=== PATIENT | male | born 1945 | race Caucasian/White ===

== ENCOUNTER 2016-04-07 12:03 | Emergency (ER) | payer MEDICARE ==
[~2016-04-07] VITALS: Ht 177.8 cm; Wt 85.0 kg
[2016-04-07 12:03] VITALS: BP 160/87; PULSE 82; RESP 18; TEMP 98.2; O2SAT 94
--- NOTE | 2016-04-07 12:52 | PD ---
HPI Chief Complaint: Complaint Time Seen by Provider: 12:52 Travel History International Travel<30 days: No Contact w/Intl Traveler<30days: No Traveled to known affect area: No History of Present Illness HPI 70-year-old male recently underwent prostate surgery [place] the [place] presents to the emergency department today for inability to urinate. Patient was advised to remove his Pearson catheter 7 days following the surgery. He states he did at 4 AM this morning had has not been able to void since. Reports significant lower abdominal discomfort. Denies any fever or chills. No chest pain or tightness. Denies any other significant medical history. Has no other symptoms to report. PFSH Past Medical History Medical History: Denies Significant Hx Social History Alcohol Use: No Tobacco Use: No Substance Use: No Allergies-Medications (Allergen,Severity, Reaction): Coded Allergies: No Known Allergies (Unverified , 04/07/16) Review of Systems Except as stated in HPI: all other systems reviewed are Neg Physical Exam Narrative GENERAL: Well-nourished male patient, pacing in the room, in obvious discomfort. SKIN: Warm and dry. HEAD: Atraumatic. Normocephalic. EYES: Pupils equal and round. No scleral icterus. No injection or drainage. ENT: No nasal bleeding or discharge. Mucous membranes pink and moist. NECK: Trachea midline. No JVD. CARDIOVASCULAR: Regular rate and rhythm. No murmur appreciated. RESPIRATORY: No accessory muscle use. Clear to auscultation. Breath sounds equal bilaterally. GASTROINTESTINAL: Abdomen soft, moderately distended and suprapubic tenderness.. Hepatic and splenic margins not palpable. MUSCULOSKELETAL: No obvious deformities. No clubbing. No cyanosis. No edema. NEUROLOGICAL: Awake and alert. No obvious cranial nerve deficits. Motor grossly within normal limits. Normal speech. PSYCHIATRIC: Appropriate mood and affect; insight and judgment normal. Data Data Last Documented VS Vital Signs Date Time Temp Pulse Resp B/P Pulse Ox O2 Delivery O2 Flow Rate FiO2 04/07/16 13:15 82 19 04/07/16 12:03 98.2 160/87 94 Room Air Orders Complete Blood Count With Diff (04/07/16 12:50) Basic Metabolic Panel (Bmp) (04/07/16 12:50) Urinalysis - C+S If Indicated (04/07/16 12:50) Continue Pearson/Suprapubic Cath (04/07/16 12:50) Bag, Leg 32oz Sterile Large Ea (04/07/16 14:00) Labs Laboratory Tests Test 04/07/16 04/07/16 13:15 13:27 White Blood Count 8.5 TH/MM3 Red Blood Count 4.86 MIL/MM3 Hemoglobin 14.2 GM/DL Hematocrit 41.2 % Mean Corpuscular Volume 84.8 FL Mean Corpuscular Hemoglobin 29.2 PG Mean Corpuscular Hemoglobin 34.4 % Concent Red Cell Distribution Width 14.5 % Platelet Count 200 TH/MM3 Mean Platelet Volume 8.6 FL Neutrophils (%) (Auto) 78.9 % Lymphocytes (%) (Auto) 11.6 % Monocytes (%) (Auto) 8.6 % Eosinophils (%) (Auto) 0.4 % Basophils (%) (Auto) 0.5 % Neutrophils # (Auto) 6.7 TH/MM3 Lymphocytes # (Auto) 1.0 TH/MM3 Monocytes # (Auto) 0.7 TH/MM3 Eosinophils # (Auto) 0.0 TH/MM3 Basophils # (Auto) 0.0 TH/MM3 CBC Comment DIFF FINAL Differential Comment Sodium Level 137 MEQ/L Potassium Level 4.1 MEQ/L Chloride Level 102 MEQ/L Carbon Dioxide Level 26.8 MEQ/L Anion Gap 8 MEQ/L Blood Urea Nitrogen 14 MG/DL Creatinine 0.94 MG/DL Estimat Glomerular Filtration 80 ML/MIN Rate Random Glucose 103 MG/DL Calcium Level 9.1 MG/DL Urine Color YELLOW Urine Turbidity CLEAR Urine pH 6.5 Urine Specific [place] 1.008 Urine Protein 30 mg/dL Urine Glucose (UA) NEG mg/dL Urine Ketones NEG mg/dL Urine Occult Blood TRACE Urine Nitrite NEG Urine Bilirubin NEG Urine Urobilinogen LESS THAN 2.0 MG/DL Urine Leukocyte Esterase NEG Urine RBC 17 /hpf Urine WBC LESS THAN 1 /hpf Urine Mucus FEW /lpf Microscopic Urinalysis Comment CATH-CULT NOT IND MDM Medical Decision Making Medical Screen Exam Complete: Yes Emergency Medical Condition: Yes Medical Record Reviewed: Yes Differential Diagnosis Urinary retention versus obstruction versus UTI versus acute kidney injury Narrative Course 70-year-old male presents to emergency department for evaluation. Workup was initiated in triage. Once a medical bed becomes available, patient will be transferred and care assumed by that provider. Condition: Stable Melisa Paulino Apr 07, 2016 12:52
--- NOTE | 2016-04-07 13:23 | PD ---
Physical Exam Time Seen by Provider: 13:23 Narrative 70-year-old male with a history of prostate cancer presents to the emergency department for evaluation of inability to urinate. Patient was seen by provider in triage initiated workup. The patient had a high flu prostate ablation performed 7 days ago and had a Oneal catheter placed at the time of the procedure. He was told by his urologist Dr. Orantes in [facility] to remove the Oneal catheter 7 days after the procedure. States he removed his catheter at 4 AM today. States he has not been able to urinate since removing the catheter. He is complaining of pressure and pain in his suprapubic region feeling as though he has to urinate but he is unable to pass any urine. States that he has had no problems after the surgery. He denies any fever, chills, nausea, vomiting, hematuria. No other complaints. GENERAL: Well-nourished and well-developed pleasant male patient in moderate amount of discomfort, pacing the room. No acute distress. SKIN: Warm and dry. HEAD: Normocephalic and atraumatic. EYES: No injection, drainage, or hyphema noted. PERRLA. EOMI. ENT: No nasal drainage noted. Oropharynx is clear. NECK: Supple and the trachea is midline. CARDIOVASCULAR: Regular rate and rhythm. RESPIRATORY: Breath sounds are equal bilaterally with no accessory muscle use, wheezing, rhonchi, or crackles. GASTROINTESTINAL: Abdomen is soft, non-tender, and nondistended. GENITOURINARY: Circumcised. Testes descended bilaterally without evidence of rotation. No lesions or erythema. No urethral discharge. Performed in the presence of Tarsha ALLRED. NEUROLOGICAL: Awake, alert, and oriented. Normal speech and gait. Cranial nerves are grossly intact. Data Data Last Documented VS Vital Signs Date Time Temp Pulse Resp B/P Pulse Ox O2 Delivery O2 Flow Rate FiO2 04/07/16 13:15 82 19 04/07/16 12:03 98.2 160/87 94 Room Air Orders Complete Blood Count With Diff (04/07/16 12:50) Basic Metabolic Panel (Bmp) (04/07/16 12:50) Urinalysis - C+S If Indicated (04/07/16 12:50) Continue Oneal/Suprapubic Cath (04/07/16 12:50) Labs Laboratory Tests Test 04/07/16 04/07/16 13:15 13:27 White Blood Count 8.5 TH/MM3 Red Blood Count 4.86 MIL/MM3 Hemoglobin 14.2 GM/DL Hematocrit 41.2 % Mean Corpuscular Volume 84.8 FL Mean Corpuscular Hemoglobin 29.2 PG Mean Corpuscular Hemoglobin 34.4 % Concent Red Cell Distribution Width 14.5 % Platelet Count 200 TH/MM3 Mean Platelet Volume 8.6 FL Neutrophils (%) (Auto) 78.9 % Lymphocytes (%) (Auto) 11.6 % Monocytes (%) (Auto) 8.6 % Eosinophils (%) (Auto) 0.4 % Basophils (%) (Auto) 0.5 % Neutrophils # (Auto) 6.7 TH/MM3 Lymphocytes # (Auto) 1.0 TH/MM3 Monocytes # (Auto) 0.7 TH/MM3 Eosinophils # (Auto) 0.0 TH/MM3 Basophils # (Auto) 0.0 TH/MM3 CBC Comment DIFF FINAL Differential Comment Sodium Level 137 MEQ/L Potassium Level 4.1 MEQ/L Chloride Level 102 MEQ/L Carbon Dioxide Level 26.8 MEQ/L Anion Gap 8 MEQ/L Blood Urea Nitrogen 14 MG/DL Creatinine 0.94 MG/DL Estimat Glomerular Filtration 80 ML/MIN Rate Random Glucose 103 MG/DL Calcium Level 9.1 MG/DL Urine Color YELLOW Urine Turbidity CLEAR Urine pH 6.5 Urine Specific [place] 1.008 Urine Protein 30 mg/dL Urine Glucose (UA) NEG mg/dL Urine Ketones NEG mg/dL Urine Occult Blood TRACE Urine Nitrite NEG Urine Bilirubin NEG Urine Urobilinogen LESS THAN 2.0 MG/DL Urine Leukocyte Esterase NEG Urine RBC 17 /hpf Urine WBC LESS THAN 1 /hpf Urine Mucus FEW /lpf Microscopic Urinalysis Comment CATH-CULT NOT IND MDM Supervised Visit with WILMAN: No Differential Diagnosis Urinary retention versus catheter complication versus urinary tract infection Narrative Course 70-year-old male presents to the emergency department for evaluation of inability to urinate after removing Oneal catheter this morning. Patient is afebrile, vital signs are stable. Physical examination is essentially unremarkable. The patient had a prostate ablation done 7 days ago by a urologist in [place]. He has had the Oneal catheter since then and was instructed to remove it at home today which she did at 4 AM. He's been unable to urinate since then. We did place a Oneal catheter and there was no resistance or difficulty per nursing staff. Urine was noted to be yellow and clear. CBC is unremarkable. BMP is unremarkable. Urinalysis shows 30 protein, trace occult blood, 17 red blood cells, few mucus. No evidence of infection. The patient has now put out about 1200 cc of urine. His symptoms have resolved. After speaking with the patient's urologist to be discharged with Oneal catheter in place for another week. He is advised to follow up as an outpatient with his urologist. Patient verbalizes understanding and agreement with treatment plan. Physician Communication Physician Communication I spoke with Dr. Orantes urologist Maryann IRVIN who requests patient have oneal for 1 more week and to continue taking Flomax. Diagnosis Primary Impression: Acute urinary retention Additional Impression: Oneal catheter in place Patient Instructions: Oneal Catheter Insertion (GEN), Oneal Catheter Placement and Care (ED), General Instructions, Urinary Retention in Men (ED) Additional Instruction: Continue Flomax as prescribed. Oneal catheter for 1 week. Follow-up with your Urologist. Return to the ED for any acute worsening of symptoms. Med/Other Pt SpecificInfo: No Change to Meds Disposition: 01 DISCHARGE HOME Condition: Stable Kelley Michelle Apr 07, 2016 13:23
[2016-04-07 13:39] LABS: AUTOMATED NEUTROPHIL # 6.7 TH/MM3 (1.8-7.7); BASOPHIL % 0.5 % (0.0-2.0); EOSINOPHIL % 0.4 % (0.0-4.0); HEMATOCRIT 41.2 % (39.0-51.0); HEMO FLAGS DIFF FINAL; LYMPH % 11.6 % (9.0-44.0); MEAN CELL VOLUME 84.8 FL (80.0-100.0); MEAN CORPUSCULAR HEMOGLOBIN 29.2 PG (27.0-34.0); MEAN CORPUSCULAR HGB CONC 34.4 % (32.0-36.0); MONO % 8.6 % (0.0-8.0); NEUT % 78.9 % (16.0-70.0); PLATELET COUNT 200 TH/MM3 (150-450); RED BLOOD COUNT 4.86 MIL/MM3 (4.50-5.90); RED CELL DISTRIBUTION WIDTH 14.5 % (11.6-17.2); WHITE BLOOD COUNT 8.5 TH/MM3 (4.0-11.0)
[2016-04-07 13:51] LABS: BICARBONATE 26.8 MEQ/L (21.0-32.0); POTASSIUM 4.1 MEQ/L (3.5-5.1)
[2016-04-07 13:53] LABS: BLOOD, URINE TRACE (NEG); COMMENT (UR) CATH-CULT NOT IND; CULTURE IF INDICATED CATH CULTURE NOT IND; GLUCOSE,URINE NEG (NEG); KETONE, URINE NEG (NEG); MUCUS URINE FEW /lpf (OCC); NITRITE,URINE NEG (NEG); PH, URINE 6.5 (5.0-8.5); URINE COLOR YELLOW (YELLW/STRAW)
== END 2016-04-07 14:40 | disposition home or self-care (01) ==
LOC: NEPC 12:03
DX: R33.9 Retention of urine, unspecified (principal)
CPT/HCPCS: 51702; 80048; 81001; 85025